=== PATIENT | male | born 1990 | race Two or more races ===

== ENCOUNTER 2018-10-16 05:45 | Emergency (ER) | payer OTHER ==
[~2018-10-16] VITALS: Ht 170.2 cm; Wt 79.4 kg
[2018-10-16 05:48] VITALS: Ht 170.2 cm; Wt 79.4 kg
[2018-10-16 06:53] LABS: CALCIUM 8.5 mg/dL (8.5-10.1); CARBON DIOXIDE 18.5 mmol/L (21-32); CHLORIDE SERUM 103 mmol/L (98-107); CREATININE SERUM 1.1 mg/dL (0.7-1.3); GFR1 > 60 mL/min; GLUCOSE SERUM 184 mg/dL (74-106); POTASSIUM SERUM 4.1 mmol/L (3.5-5.1); SODIUM SERUM 140 mmol/L (136-145)
[2018-10-16 06:57] LABS: BASOPHIL % 0.2 % (0-2); PLATELET COUNT 246 x10^3mcL (130-400); RED CELL DISTRIBUTION WIDTH 12.8 % (11.5-14.5)
[2018-10-16 06:59] LABS: ALBUMIN 4.4 g/dL (3.4-5.0); ALKALINE PHOSPHATASE 111 U/L (46-116); ALT/SGPT 47 U/L (16-63); AST/SGOT 20 U/L (15-37); BILIRUBIN TOTAL 0.2 mg/dL (0.20-1.00); TOTAL PROTEIN, SERUM 8.1 g/dL (6.4-8.2)
[2018-10-16 07:59] VITALS: BP 128/73
== END 2018-10-16 07:59 | disposition home or self-care (01) ==
LOC: ED 05:45
PROVIDERS: Emergency Medicine
DX: S60.812A Abrasion of left wrist, initial encounter (principal); G40.909 Epilepsy, unspecified, not intractable, without status epilepticus; V49.88XA Car occupant (driver) (passenger) injured in other specified transport accidents, initial encounter; Y93.I9 Activity, other involving external motion; Y92.413 State road as the place of occurrence of the external cause; Y99.8 Other external cause status
CPT/HCPCS: 82962; J1953